=== PATIENT | male | born 2000 | race African-American/Black ===

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

== ENCOUNTER 2023-01-23 00:02 | Emergency (ER) | payer OTHER ==
[~2023-01-23] VITALS: Ht 177.8 cm; Wt 72.6 kg
[2023-01-23 00:21] VITALS: BP 140/86
--- NOTE | 2023-01-23 00:27 | NUR ---
TO LOBBY FOLLOWING TRIAGE
--- NOTE | 2023-01-23 01:59 | NUR ---
PT CALLED IN LOBBY FOR MD TO EXAMINE. NO ANSWER
--- NOTE | 2023-01-23 02:02 | NUR ---
PT CALLED TO BE SEEN BY PROVIDER. NO ANSWER
--- NOTE | 2023-01-23 02:30 | NUR ---
PT CALLED FOR PROVIDER EXAM. NO ANSWER
== END 2023-01-23 02:30 | disposition left against medical advice (07) ==
LOC: MED 00:02
DX: R06.02 Shortness of breath (principal); Z53.21 Procedure and treatment not carried out due to patient leaving prior to being seen by health care provider
CPT/HCPCS: 99281

== ENCOUNTER 2023-02-01 04:05 | Emergency (ER) | payer OTHER ==
[~2023-02-01] VITALS: Ht 175.3 cm; Wt 72.6 kg
[2023-02-01 04:12] VITALS: BP 116/85
--- NOTE | 2023-02-01 04:12 | NUR ---
PT WENT TO CHAIR
--- NOTE | 2023-02-01 04:15 | NUR ---
PT FEEL CHEST THIGHNESS, WHEZZING, CHEST PAIN 10/10, SOB, BEFORE MIDNIGHT PMX ASHTMA
--- NOTE | 2023-02-01 04:25 | NUR ---
DR EXAMNING THE PATIENT
[2023-02-01] MEDS ORDERED: ALBU0.0912 IH (04:26)
[2023-02-01 04:34] VITALS: BP 116/85
== END 2023-02-01 04:34 | disposition home or self-care (01) ==
LOC: MED 04:05
DX: J98.01 Acute bronchospasm (principal); J45.909 Unspecified asthma, uncomplicated; Z79.899 Other long term (current) drug therapy
CPT/HCPCS: 99283

== ENCOUNTER 2023-02-22 03:19 | Emergency (ER) | payer OTHER ==
[~2023-02-22 03:19] MED LIST: ALBU0.0912 IH
--- NOTE | 2023-02-22 03:20 | NUR ---
CALL TO TRIAGE, NO RESPONSE. PATIENT LEFT WITHOUT BEING SEEN BY DR. FLORES. NO FURTHER CARE PROVIDED FOR PATIENT.
--- NOTE | 2023-02-22 03:25 | NUR ---
CALLED FOR THE SECOND TIME, NO RESPONSE
--- NOTE | 2023-02-22 03:30 | NUR ---
CALLED FOR THE THIRD TIME, NO RESPONSE
== END 2023-02-22 03:20 | disposition left against medical advice (07) ==
LOC: MED 03:19
DX: R06.02 Shortness of breath (principal); Z53.21 Procedure and treatment not carried out due to patient leaving prior to being seen by health care provider